=== PATIENT | female | born 1980 | race Caucasian/White ===

== ENCOUNTER → 2018-01-20 | Outpatient (CLI) | payer OTHER ==
--- NOTE | 2018-01-21 05:14 | PAP/PSG TECHNICIAN REPORT ---
[facility] [employer] Polysomnogram Report Study name: None Report date: 01/21/2018 Study date: 01/20/2018 Referring Physician: Inna Ghotra Name: OSMAR BURDICK Interpreting Physician: Sherly Card M.D. Date of : 1980 Corn Chip Maker: Brenda Cline, PSGT. Sex: Female Age: 37 StudyType: PSG Weight: 331 lbs Height: 37 years, Height 5' 8" Neck Circum:16.75 inches BMI: 50.32 Medications: Cholecalciferol 15469 units, Levothyroxine 137 mcg, Lisinopril - HCTZ 10-12.5 mg, Naproxen 500 mg. Patient History 37 yr. old female here for a split night study (AHI> 15). She states that she is in the process of bariatric surgery, she states that she snores and has been told that she stops breathing during sleep. Patient had an inconclusive sleep study 8 yr.'s. ago. Ess=12, Neck =16.75 inches. Parameters Monitored NPSG: E1-M2, E2-M1, Fp1-M2, Fp2-M1, F3-M2, F4-M2, F4-M1, C3-M2, C4-M2, C4-M1, O1-M2, O2-M2, O2-M1, T3-M2, T4-M1, P3-M2, P4-M1, CHIN1, CHIN2, HR, EKG, Legs, PFLOW, SNOR, FLOW, CFLOW, Tidal Volume, THOR, ABDO, SpO2, PLTH, CPRESS, ETCO2 Wave, ETCO2, pH Sleep Architecture Sleep Stages Time at Lights Off 10:37:35 PM STAGES Time (min.) TST (%) Time at Lights On 5:00:05 AM Wake 113.0 -- Total Recording Time (TRT) 387.50 min. N1 23.5 9 Total Sleep Period (TSP) 355.5 min. N2 210.5 78 Total Sleep Time (TST) 269.5min. N3 0.0 0 Awake Time 118.0 min. REM 35.5 13 Wake after Sleep Onset 86.5 min. Sleep Efficiency (SE) 70 % Sleep Onset Latency (GUCCI) 26.5 min. Number of Stage 1 Shifts None Awakenings 13 Stage Changes 46 Number of REM periods 4 REM 35.5 13 REM Latency 68.5 min. NREM 234.0 87 Body Position Analysis Supine Right Left Side Prone Vertical Total Sleep Time (min.) 8.4 28.5 159.5 188.02 92.8 0.0 Total Sleep Time (%) 0% 11% 59% 70 30% N/A% Total Sleep Time REM (min.) 0.0 13.5 22.0 None 0.0 0.0 Total Sleep Time NREM (min.) 0.0 15.0 137.5 None 81.5 0.0 Intermittent Wake (min.) 8.4 42.2 51.1 None 11.3 0.0 Total Sleep Period (%) 1% None None None None None Arousals Myoclonus (PLM) * Events Count Index Events Count Index Spontaneous 36 8 Events Awake (PLMW) 0 0.0 Respiratory 0 0.0 Events Asleep w/ Arousal (PLMA) 5 1.1 PLM 5 1 Events Asleep w/o Arousal (PLMS) 49 10.9 Snoring 6 1 Total Asleep 54 12.0 Total 47 10 Total 54 8 Respiratory Analysis * CA OA MA CH H RERA Total Count 0 0 0 0 20 0 20 Index 0.0 0.0 0.0 0 4.5 0 4.5 Mean Duration 0.0 0.0 0.0 0.00 18.5 0.0 18.5 Longest Duration 0.0 0.0 0.0 0.00 0.0 0.0 39.7 Respiratory Event Summary Total Supine ~Supine Right Left Prone REM NREM Apneas Count 0 N/A 0 0 0 0 0 0 Index 0.0 N/A 0 0.0 0.0 0 0 0 Hypopneas (4% Desat) Count 20 N/A 20 5 13 2 12 8 Index 4.5 N/A 4 10.5 4.9 1.5 20.3 2.1 Apneas & All Hypopneas Count 20 N/A 20 5 13 2 12 8 Index 4.5 N/A 4 11 5 1 20.3 2.1 Respiratory Events (Welfare Service Aide+All Hyp+RERA) Count 20 N/A 20 5 13 2 12 8 Index 4.5 N/A 4 10.5 4.9 1.5 20.3 2.1 Respiratory Related Arousal Count 0 N/A 0 0 0 0 0 0 Index 0.0 N/A 0 0 0 0 0 0 Snoring Analysis Supine Right Left Prone REM NREM Total Snore duration 10.3 min Snores count N/A 30 344 130 27 477 504 Snore mean duration 1.2 Sec Snores index N/A 63 129 96 45.6 122.3 112.2 TST with snoring (%) 3.8% SpO2 Analysis Total REM NREM Awake <50% 0.0 min. 0.0 min. 0.0 min. 0.0 min. 51 - 60% 0.0 min. 0.0 min. 0.0 min. 0.0 min. 61 - 70% 0.0 min. 0.0 min. 0.0 min. 0.0 min. 71 - 80% 0.0 min. 0.0 min. 0.0 min. 0.0 min. 81 - 90% 33.0 min. 18.3 min. 10.9 min. 3.8 min. 91 - 100% 349.3 min. 17.2 min. 223.1 min. 109.0 min. Average 92 90 92 93 Minimum SpO2 84 84 84 85 Desaturation Event Index 6.0 32.1 4.9 0.0 # Desat. Events below 89% 15 11 4 N/A Time(%) with Saturation below 89% 2.2 1.6 0.3 0.3 Time(min.) with Saturation below 89% 8.4 5.9 1.3 1.2 Heart Rate Analysis End Tidal CO2 Analysis Min (bpm) Max (bpm) Average (bpm) TSP (mins) % of TSP Awake 58 107 78 Above 55 mmHg 0.0 0.0 NREM 56 102 74 50-55 mmHg 0.0 0.0 REM 60 89 71 45-50 mmHg 0.4 0.1 Overall 56 102 74 40-45 mmHg 174.2 64.6 35-40 mmHg 68.3 25.4 30-35 mmHg 22.0 8.1 Average ETCO2 0.0 Supplemental O2 Values Minimum O2 level: None Value Start Time End Time [employer] Comments PSG Study MS. Burdick slept in the right, left, supine positions. No cardiac arrhythmia or PLM's noted. No bruxism noted. Snoring was noted and scored as a 2 on a scale of 1 through 5. (0=no snoring, 5=snoring loud enough to be heard through a closed door or down the [address] way) Ms. Burdick awoke to use the restroom zero times during the night. Ms. Burdick stated, I did not sleep as well as I do when I am in my own bed. The final report will be interpreted and signed by a sleep physician. The completed physician report will then be placed in the patient medical record. Ms Burdick rolled in circles most of the study pulling leads off several times. At 2am patient did not meet an AHI >15 to qualify for a split night study. Therapy (cm H2O) 0 TIB (min.) 382.5 TST (min.) 269.5 Sleep Onset (min.) 26.5 REM Onset From Sleep (min.) 68.5 Sleep Efficiency % 70 Wakefulness (%) 30 Wakefulness (min.) 118.0 NREM 1 (%) 9 NREM 1 (min.) 23.5 NREM 2 (%) 78 NREM 2 (min.) 210.5 NREM 3 (%) 0 NREM 3 (min.) 0.0 REM (%) 13 REM (min.) 35.5 # Arousals 47 Arousal Index 10 # Snore 504 Snore Index 112.2 AHI 4.5 AHI Supine N/A AHI Non-Supine 4 NREM AHI 2.1 REM AHI 20.3 RDI 4.5 # Obstructive Apnea 0 # Central Apnea 0 # Mixed Apnea 0 # Hypopneas 20 RERAs 0 Total Respiratory Events 20 Time Below SpO2 89% (min.) 7.2 Mean NREM SpO2 (%) 92 Mean REM SpO2 (%) 90 Mean Sleep SpO2 (%) 92 Min NREM SpO2 (%) 84 Min REM SpO2 (%) 84 Position Supine (min.) 8.4 Position Non-supine (min.) 269.5 LM Index Sleep 12.0 LM Index NREM 12.6 LM Index REM 8.5 Mean Heart Rate (bpm) 74 Min Heart Rate (bpm) 56
== END | disposition home or self-care (01) ==
LOC: C.NEUR 20:00
PROVIDERS: ATTEND Internal Medicine
DX: G47.33 Obstructive sleep apnea (adult) (pediatric) (principal); I10 Essential (primary) hypertension; G47.10 Hypersomnia, unspecified